=== PATIENT | female | born 1960 | race Caucasian/White ===

== ENCOUNTER → 2017-02-21 | Outpatient (CLI) | payer MEDICARE ==
--- NOTE | 2017-02-24 10:01 | MM ---
Reason for exam: screening (asymptomatic). Last mammogram was performed 1 year and 1 month ago. History: Patient is postmenopausal. Physical Findings: A clinical breast exam by your physician is recommended on an annual basis and results should be correlated with mammographic findings. MG 3D Screening Mammo W/Cad Bilateral CC and MLO view(s) were taken. Prior study comparison: February 06, 2016, bilateral MG 3d screening mammo w/cad. December 29, 2014, bilateral MG screening mammo w CAD. There are scattered fibroglandular densities. Finding: There are typically benign calcifications in both breasts. There is a chronic nodularity in the right breast. No significant changes in finding since February 06, 2016 and December 29, 2014. ASSESSMENT: Benign, BI-RAD 2 RECOMMENDATION: Routine screening mammogram of both breasts in 1 year.
== END | disposition home or self-care (01) ==
LOC: RADMAMWWP 10:54
PROVIDERS: ATTEND Internal Medicine
DX: Z12.31 Encounter for screening mammogram for malignant neoplasm of breast (principal)
CPT/HCPCS: 77063; G0202

== ENCOUNTER 2017-11-04 16:53 | Emergency (ER) | payer MEDICARE ==
[2017-11-04 17:16] VITALS: BP 157/91; PULSE 60; RESP 18; TEMP 97.6
--- NOTE | 2017-11-04 17:52 | XR ---
EXAMINATION TYPE: XR foot complete RT, XR ankle complete RT DATE OF EXAM: 11/04/2017 COMPARISON: NONE HISTORY: Pain TECHNIQUE: Frontal, lateral and oblique images of the right ankle are obtained. COMPARISON: None. FINDINGS: There is no acute fracture/dislocation evident. The joint spaces appear within normal palomino its. The overlying soft tissue appears unremarkable. IMPRESSION: There is no acute fracture or dislocation seen. EXAMINATION TYPE: XR foot complete RT, XR ankle complete RT DATE OF EXAM: 11/04/2017 CLINICAL HISTORY: pain TECHNIQUE: Frontal, lateral and oblique images of the right foot are obtained. COMPARISON: None. FINDINGS: There is no acute fracture/dislocation evident. The joint spaces appear within normal palomino its. The overlying soft tissue appears unremarkable. IMPRESSION: There is no acute fracture or dislocation. ICD 10 NO FRACTURE, INITIAL EVALUATION
--- NOTE | 2017-11-04 18:14 | ED ---
General Adult HPI - General Chief complaint: Extremity Injury, Lower Stated complaint: Fell/foot injury Time Seen by Provider: 11/04/17 18:12 Source: patient, RN notes reviewed Mode of arrival: ambulatory Limitations: no limitations - History of Present Illness Initial comments: Patient 57-year-old female presenting to the emergency room today with chief complaint of injury to the right foot. She does admit that yesterday she missed a step and went down hard on the step below. She states there was no other injury but has had some tenderness to the under aspect of the right foot. She states as the day has gone on and has started to feel better. She did take some ibuprofen. She denies any other complaints or symptoms. Patient denies any recent fever, chills, shortness of breath, chest pain, back pain, abdominal pain, nausea or vomiting, numbness or tingling, headaches or visual changes, or any other complaints. - Related Data Home Medications Medication Instructions Recorded Confirmed Aspirin 1 tab PO DAILY 04/02/15 04/02/15 Atenolol 1 tab PO DAILY 04/02/15 04/02/15 Hydrochlorothiazide [Hydrodiuril] 1 tab PO DAILY 04/02/15 04/02/15 Nortriptyline [Pamelor] 1 tab PO DAILY 04/02/15 04/02/15 Omeprazole [PriLOSEC] 1 tab PO DAILY 04/02/15 04/02/15 traMADol HCl [Ultram] 1 tab PO TID 04/02/15 04/02/15 Previous Rx's Medication Instructions Recorded Hydrocodone/Acetaminophen [Childs 1 each PO Q6HR PRN #20 tab 04/02/15 5-325] Allergies Allergy/AdvReac Type Severity Reaction Status Date / Time No Known Allergies Allergy Verified 11/04/17 17:16 Review of Systems ROS Statement: Those systems with pertinent positive or pertinent negative responses have been documented in the HPI. ROS Other: All systems not noted in ROS Statement are negative. Past Medical History Past Medical History: Asthma, Fibromyalgia, GERD/Reflux, Hypertension History of Any Multi-Drug Resistant Organisms: None Reported Past Surgical History: Section, Hysterectomy, Joint Replacement, Tonsillectomy, Tubal Ligation Additional Past Surgical History / Comment(s): knee, stomach staple Past Psychological History: No Psychological Hx Reported Smoking Status: Never smoker Past Alcohol Use History: Occasional Past Drug Use History: None Reported General Exam - General Exam Comments Initial Comments: General: The patient is awake and alert, in no distress, and does not appear acutely ill. Neck: The neck is supple, there is no tenderness or JVD. Musculoskeletal: Patient has normal appearance of the right foot and ankle no obvious swelling or deformity. Patient shows good range of motion. Is able to ambulate. No bony tenderness to the right ankle, right knee, right foot on exam. Strength 5/5. Pulses 2+ bilaterally. Neurological: A&O x 3. CN II-XII intact, There are no obvious motor or sensory deficits. Coordination appears grossly intact. Speech is normal. Skin: Skin is warm and dry and no rashes or lesions are noted. Psychiatric: Normal mood and affect. Limitations: no limitations Course Vital Signs 11/04/17 17:12 Temperature 97.6 F Pulse Rate 60 Respiratory 18 Rate Blood Pressure 157/91 O2 Sat by Pulse 95 Oximetry Medical Decision Making - Medical Decision Making X-rays reviewed negative for any fracture dislocation. Advised most likely a sprain as discussed. States it is better after Ibuprofen and walking around today. Advised follow-up in 7-10 days symptoms persist for repeat x-ray. Disposition Clinical Impression: Foot sprain Disposition: HOME SELF-CARE Condition: Good Instructions: Foot Sprain (ED) Additional Instructions: Please follow-up with family doctor/orthopedics in 7-10 days if symptoms persist for repeat x-rays. Please continue to ice elevate the affected area 4 times a day for 20 minutes at a time. Please continue ibuprofen for pain. Please return to emergency room for any other concerns or Is patient prescribed a controlled substance at d/c from ED?: No Referrals: Alicja Carrillo MD [Primary Care Provider] - 1-2 days Felix Saucedo DO [Doctor of Osteopathic Medicine] - 1-2 days Time of Disposition: 18:25
== END 2017-11-04 18:34 | disposition home or self-care (01) ==
LOC: EC 16:53
DX: S93.601A Unspecified sprain of right foot, initial encounter (principal); I10 Essential (primary) hypertension; K21.9 Gastro-esophageal reflux disease without esophagitis; Z79.82 Long term (current) use of aspirin; Z79.891 Long term (current) use of opiate analgesic; Z79.899 Other long term (current) drug therapy; X50.9XXA Other and unspecified overexertion or strenuous movements or postures, initial encounter
CPT/HCPCS: 99283

== ENCOUNTER → 2018-03-23 | Outpatient (CLI) | payer MEDICARE ==
--- NOTE | 2018-03-23 18:19 | BD ---
EXAMINATION TYPE: Axial Bone Density DATE OF EXAM: 03/23/2018 COMPARISON: NONE CLINICAL HISTORY: 57-year-old female screening for osteoporosis Height: 53 IN Weight: 258 LBS FRAX RISK QUESTIONS: Secondary Osteoporosis: 3. Menopause before 45: YES AGE 44 Rheumatoid Arthritis: YES RISK FACTORS HISTORY OF: Active: YES Diet low in dairy products/other sources of calcium: YES Postmenopausal woman: AGE 44 Lost more than 2 inches in height since high school: YES 3" MEDICATIONS: Additional Medications: ATENOLOL, HCTZ, NORTRIPTYLINE, OMEPRAZOLE, ZAFIRLUKAST, LORATADINE, ASPIRIN, IBUPROFEN, TRAMADOL, AMMONIUM, METFORMIN, ATORVASTATIN EXAM MEASUREMENTS: Bone mineral densitometry was performed using the [employer] System. Bone mineral density as measured about the Lumbar spine is: ----- L1-L4(G/cm2): 1.330 T Score Values are as follows: ----- L2: 0.4 ----- L3: 2.7 ----- L4: 1.4 ----- L1-L4: 1.3 Bone mineral density BASELINE Bone mineral density about the R hip (g/cm2): 0.854 Bone mineral density about the L hip (g/cm2): 0.829 T Score values are as follows: -----R Neck: -1.3 -----L Neck: 1.5 -----R Total: -0.5 -----L Total: -1.1 Bone mineral density BASELINE IMPRESSION: Osteopenia (T Score between -2.5 and -1). There is slightly increased risk of fracture and the patient may be considered for treatment. Re-Screen 2-5 years. NOTE: T-SCORE=SD OF THE YOUNG ADULT MEAN.
--- NOTE | 2018-03-24 09:30 | MM ---
Reason for exam: screening (asymptomatic). Last mammogram was performed 1 year and 1 month ago. History: Patient is postmenopausal. Physical Findings: A clinical breast exam by your physician is recommended on an annual basis and results should be correlated with mammographic findings. MG 3D Screening Mammo W/Cad Bilateral CC and MLO view(s) were taken. Prior study comparison: February 21, 2017, bilateral MG 3d screening mammo w/cad. February 06, 2016, bilateral MG 3d screening mammo w/cad. The breast tissue is almost entirely fat. No significant changes when compared with prior studies. ASSESSMENT: Benign, BI-RAD 2 RECOMMENDATION: Routine screening mammogram of both breasts in 1 year.
== END ==
LOC: RADMAMWWP 09:16
PROVIDERS: ATTEND Family Medicine
DX: Z12.31 Encounter for screening mammogram for malignant neoplasm of breast (principal); M85.80 Other specified disorders of bone density and structure, unspecified site
CPT/HCPCS: 77063; 77067; 77080

== ENCOUNTER → 2019-05-26 | Outpatient (CLI) | payer MEDICARE ==
--- NOTE | 2019-05-26 09:31 | US ---
EXAMINATION TYPE: US duplex aorta DATE OF EXAM: 05/26/2019 COMPARISON: NONE CLINICAL HISTORY: Z82.49 Fam hx of aaa. Family history of AAA EXAM MEASUREMENTS: Abdominal Aorta: Proximal: 2.0 x 1.8cm Mid: 2.0 x 1.7cm Distal: 1.9 x 1.6cm Bifurcation: obscured by overlying bowel content Suboptimal study due to body habitus and overlying bowel gas per technologist. Aorta is not seen in i ts entirety through the bifurcation. Visualized portions measure up to 2.0 cm in diameter. IMPRESSION: Suboptimal study, visualized portions show no greater than 3.0 cm AAA
--- NOTE | 2019-05-27 10:54 | MM ---
Reason for exam: screening (asymptomatic). Last mammogram was performed 1 year and 2 months ago. History: Patient is postmenopausal. Physical Findings: A clinical breast exam by your physician is recommended on an annual basis and results should be correlated with mammographic findings. MG 3D Screening Mammo W/Cad Bilateral CC and MLO view(s) were taken. Prior study comparison: March 23, 2018, bilateral MG 3d screening mammo w/cad. February 21, 2017, bilateral MG 3d screening mammo w/cad. The breast tissue is almost entirely fat. There is no discrete abnormality. No significant changes when compared with prior studies. ASSESSMENT: Negative, BI-RAD 1 RECOMMENDATION: Routine screening mammogram of both breasts in 1 year.
== END | disposition home or self-care (01) ==
LOC: RADUSWWP 08:46
PROVIDERS: ATTEND Family Medicine
DX: Z12.31 Encounter for screening mammogram for malignant neoplasm of breast (principal); Z13.6 Encounter for screening for cardiovascular disorders; Z82.49 Family history of ischemic heart disease and other diseases of the circulatory system
CPT/HCPCS: 77063; 77067; 93979

== ENCOUNTER → 2020-06-05 | Outpatient (CLI) | payer MEDICARE ==
--- NOTE | 2020-06-06 12:21 | MM ---
Reason for exam: screening (asymptomatic). Last mammogram was performed 1 year ago. History: Patient is postmenopausal. Physical Findings: A clinical breast exam by your physician is recommended on an annual basis and results should be correlated with mammographic findings. MG 3D Screening Mammo W/Cad Bilateral CC and MLO view(s) were taken. Prior study comparison: May 26, 2019, bilateral MG 3d screening mammo w/cad. March 23, 2018, bilateral MG 3d screening mammo w/cad. There are scattered fibroglandular densities. There are benign appearing round calcifications bilaterally. There is chronic nodularity in the right breast. There is no discrete abnormality. ASSESSMENT: Benign, BI-RAD 2 RECOMMENDATION: Routine screening mammogram of both breasts in 1 year.
== END | disposition home or self-care (01) ==
LOC: RADMAMWWP 09:49
PROVIDERS: ATTEND Family Medicine
DX: Z12.31 Encounter for screening mammogram for malignant neoplasm of breast (principal)
CPT/HCPCS: 77063; 77067

== ENCOUNTER 2021-04-09 13:18 | Emergency (ER) | payer MEDICARE ==
[2021-04-09 14:17] VITALS: BP 144/84; PULSE 57; RESP 18; TEMP 98.7
--- NOTE | 2021-04-09 16:38 | ED ---
General Adult HPI - General Chief complaint: ENT Stated complaint: Facial pain,Sinus infection Time Seen by Provider: 04/09/21 16:16 Source: patient Mode of arrival: ambulatory Limitations: no limitations - History of Present Illness Initial comments: 60-year-old female presents to the emergency department with complaints of right-sided facial discomfort she describes as pressure; states "I think I have a sinus infection." Patient reports symptoms began just over a week ago and are accompanied by nasal congestion and pain over the right maxillary teeth. States pain is worsened with bending forward. Denies fever, chills, headache, neck pain, sore throat, cough, pain, or difficulty breathing. - Related Data Home Medications Medication Instructions Recorded Confirmed Aspirin 1 tab PO DAILY 04/02/15 04/02/15 Nortriptyline [Pamelor] 1 tab PO DAILY 04/02/15 04/02/15 Omeprazole [PriLOSEC] 1 tab PO DAILY 04/02/15 04/02/15 atenoloL 1 tab PO DAILY 04/02/15 04/02/15 hydroCHLOROthiazide [Hydrodiuril] 1 tab PO DAILY 04/02/15 04/02/15 traMADol HCl [Ultram] 1 tab PO TID 04/02/15 04/02/15 Previous Rx's Medication Instructions Recorded Hydrocodone/Acetaminophen [[place] 1 each PO Q6HR PRN #20 tab 04/02/15 5-325] Amoxicillin/Potassium Clav 1 tab PO Q12HR #20 tab 04/09/21 [Augmentin 875-125 Tablet] Allergies Allergy/AdvReac Type Severity Reaction Status Date / Time No Known Allergies Allergy Verified 04/09/21 14:17 Review of Systems ROS Statement: Those systems with pertinent positive or pertinent negative responses have been documented in the HPI. ROS Other: All systems not noted in ROS Statement are negative. Past Medical History Past Medical History: Asthma, Fibromyalgia, GERD/Reflux, Hypertension History of Any Multi-Drug Resistant Organisms: None Reported Past Surgical History: Section, Hysterectomy, Joint Replacement, Tonsillectomy, Tubal Ligation Additional Past Surgical History / Comment(s): knee, stomach staple Past Psychological History: No Psychological Hx Reported Smoking Status: Never smoker Past Alcohol Use History: Occasional Past Drug Use History: None Reported General Exam Limitations: no limitations (Well-developed, well-nourished female in no acute distress. Initial temperature 98.7, pulse 57, respirations 18, blood pressure 144/84, pulse ox 98% on room air.) General appearance: alert, in no apparent distress Eye exam: Present: normal appearance, EOMI. Absent: scleral icterus, conjunctival injection, periorbital swelling ENT exam: Present: normal oropharynx, mucous membranes moist, other (Tenderness upon palpation over the right sinus) Expanded Mouth exam: Present: normal external inspection Teeth exam: Present: normal inspection Throat exam: normal inspection Neck exam: Present: normal inspection. Absent: tenderness, meningismus, lymphadenopathy Respiratory exam: Present: normal lung sounds bilaterally. Absent: respiratory distress, wheezes, rales, rhonchi, stridor Cardiovascular Exam: Present: regular rate, normal rhythm, normal heart sounds. Absent: systolic murmur, diastolic murmur, rubs, gallop, clicks Neurological exam: Present: alert, oriented X3, CN II-XII intact Psychiatric exam: Present: normal affect, normal mood Skin exam: Present: warm, dry, intact, normal color. Absent: rash Course Vital Signs 04/09/21 14:13 Temperature 98.7 F Pulse Rate 57 L Respiratory 18 Rate Blood Pressure 144/84 O2 Sat by Pulse 98 Oximetry Medical Decision Making - Medical Decision Making This is a 60-year-old female who presents to the emergency Department with complaints of right-sided facial discomfort that centers over the right sinus and is accompanied by right-sided maxillary pressure. No significant physical exam findings. Antibiotic therapy will be initiated. Patient is instructed to follow up with her primary care provider for a recheck in the next 1-2 days. Return parameters were discussed in detail. Patient verbalizes understanding and agrees with this plan. This case was discussed with my attending, Dr. Ojeda. Disposition Clinical Impression: Acute sinusitis Disposition: HOME SELF-CARE Condition: Stable Instructions (If sedation given, give patient instructions): Sinusitis (ED) Additional Instructions: Continue taking your home ALLERGY medicine. Take full course of antibiotic. Follow up with your primary care provider for a recheck in the next 1-2 days. Return to the emergency department with any new, worsening, or concerning symptoms. Prescriptions: Amoxicillin/Potassium Clav [Augmentin 875-125 Tablet] 1 tab PO Q12HR #20 tab Is patient prescribed a controlled substance at d/c from ED?: No Referrals: Alicja Carrillo MD [Primary Care Provider] - 1-2 days Time of Disposition: 16:46
== END 2021-04-09 17:08 | disposition home or self-care (01) ==
LOC: EC 13:18
DX: J01.90 Acute sinusitis, unspecified (principal); I10 Essential (primary) hypertension; K21.9 Gastro-esophageal reflux disease without esophagitis; M79.7 Fibromyalgia; J45.909 Unspecified asthma, uncomplicated; Z79.82 Long term (current) use of aspirin; Z79.899 Other long term (current) drug therapy
CPT/HCPCS: 99283

== ENCOUNTER → 2021-09-05 | Outpatient (CLI) | payer MEDICARE ==
--- NOTE | 2021-09-05 13:06 | BD ---
EXAMINATION TYPE: Axial Bone Density DATE OF EXAM: 09/05/2021 COMPARISON: 03/23/2018 CLINICAL HISTORY: Height: 63 IN Weight: 275 LBS FRAX RISK QUESTIONS: Secondary Osteoporosis: 3. Menopause before 45: TOTAL HYST AGE 44 RISK FACTORS HISTORY OF: Active: MODERATE Diet low in dairy products/other sources of calcium: YES Postmenopausal woman: TOTAL HYST AGE 44 Lost more than 2 inches in height since high school: YES 4" MEDICATIONS: Additional Medications: VIT D, ASPIRIN, LORATADINE, IBUPROFEN, NORTRIPTYLINE, HYDROCHLORIDE, ATORVAST ATIN, ZATIRLUKAST, ATENOLOL, METFORMIN, OMEPRAZOLE EXAM MEASUREMENTS: Bone mineral densitometry was performed using the [employer] System. Bone mineral density as measured about the Lumbar spine is: ----- L1-L4(G/cm2): 1.357 T Score Values are as follows: ----- L2: 0.0 ----- L3: 3.0 ----- L4: 1.8 ----- L1-L4: 1.5 Bone mineral density has: Increased 1.1% since study of: 03/23/2018 Bone mineral density about the R hip (g/cm2): 0.880 Bone mineral density about the L hip (g/cm2): 0.796 T Score values are as follows: -----R Neck: -1.1 -----L Neck: -1.7 -----R Total: -0.4 -----L Total: -1.3 Bone mineral density has: Decreased -1.4% since study of: 03/23/2018 IMPRESSION: There is osteopenia of the left proximal femur. NOTE: T-SCORE=SD OF THE YOUNG ADULT MEAN.
--- NOTE | 2021-09-05 13:38 | MM ---
Reason for exam: screening (asymptomatic). Last mammogram was performed 1 year and 3 months ago. History: Patient is postmenopausal. Physical Findings: A clinical breast exam by your physician is recommended on an annual basis and results should be correlated with mammographic findings. MG 3D Screening Mammo W/Cad Bilateral CC and MLO view(s) were taken. Prior study comparison: June 05, 2020, bilateral MG 3d screening mammo w/cad. May 26, 2019, bilateral MG 3d screening mammo w/cad. There are scattered fibroglandular densities. There is no discrete abnormality. No significant changes when compared with prior studies. ASSESSMENT: Negative, BI-RAD 1 RECOMMENDATION: Routine screening mammogram of the left breast in 1 year.
== END | disposition home or self-care (01) ==
LOC: RADMAMWWP 10:17
PROVIDERS: ATTEND Family Medicine
DX: Z12.31 Encounter for screening mammogram for malignant neoplasm of breast (principal); Z78.0 Asymptomatic menopausal state; M85.852 Other specified disorders of bone density and structure, left thigh
CPT/HCPCS: 77063; 77067; 77080

== ENCOUNTER → 2022-10-04 | Outpatient (CLI) | payer MEDICARE ==
--- NOTE | 2022-10-07 17:07 | MM ---
Reason for Exam: Screening (asymptomatic). Last screening mammogram was performed 12 month(s) ago. Patient History: Menarche at age 12. First Full-Term at age 27. Left ovary removed at age 44. Right ovary removed at age 44. Hysterectomy at age 44. Postmenopausal. Patient has history of breast feeding. Risk Values: Esperanza 5 year model risk: 1.7%. NCI Lifetime model risk: 7.7%. Prior Study Comparison: 02/06/2016 Bilateral Screening Mammogram, [facility]. 02/21/2017 Bilateral Screening Mammogram, [facility]. 03/23/2018 Bilateral Screening Mammogram, [facility]. 05/26/2019 Bilateral Screening Mammogram, [facility]. 06/05/2020 Bilateral Screening Mammogram, [facility]. 09/05/2021 Bilateral Screening Mammogram, [facility]. Tissue Density: There are scattered fibroglandular densities. Findings: Analyzed By CAD. Pattern appears symmetrical and stable. No significant interval change is evident. Chronic nodularity is in the outer right breast. No suspicious groups of microcalcifications, spiculated or lobular masses, architectural distortion or other secondary signs of malignancy are mammographically apparent. Overall Assessment: Benign, BI-RAD 2 Management: Screening Mammogram of both breasts in 1 year. A negative mammogram report should not preclude additional follow up of suspicious palpable abnormalities. Patient should continue monthly self breast exam. A clinical breast exam by your physician is recommended on an annual basis and results should be correlated with mammographic findings. Electronically signed and approved by: Jamie Chow D.O. Radiologis
== END | disposition home or self-care (01) ==
LOC: RADMAMWWP 10:18
PROVIDERS: ATTEND Family Medicine
DX: Z12.31 Encounter for screening mammogram for malignant neoplasm of breast (principal); Z78.0 Asymptomatic menopausal state
CPT/HCPCS: 77063; 77067

== ENCOUNTER → 2023-02-17 | Outpatient (CLI) | payer MEDICARE ==
--- NOTE | 2023-02-17 17:15 | US ---
EXAMINATION TYPE: US kidneys/renal and bladder DATE OF EXAM: 02/17/2023 COMPARISON: NONE CLINICAL INDICATION: Female, 62 years old with history of R32 URINARY INCONTINENCE; EXAM MEASUREMENTS: Right Kidney: 10.6 x 3.9 x 4.8 cm Left Kidney: 9.8 x 5.4 x 4.6 cm Post Void Residual Volume: wnl Right Kidney: wnl , no masses, no hydronephrosis, no calculi. Left Kidney: wnl no masses, no hydronephrosis, no calculi. Bladder: wnl Bilateral Jets seen: no Normal Post Void Residual: yes There is no evidence for hydronephrosis at this point in time. No nephrolithiasis is seen. No rosalind s are identified. The urinary bladder is anechoic. IMPRESSION: No evidence for acute process. Cortical medullary differentiation is maintained.
== END | disposition home or self-care (01) ==
LOC: RADUSWWP 16:09
PROVIDERS: ATTEND Family Medicine
DX: R32 Unspecified urinary incontinence (principal)
CPT/HCPCS: 76770

== ENCOUNTER → 2023-10-06 | Outpatient (CLI) | payer MEDICARE ==
--- NOTE | 2023-10-07 09:01 | MM ---
Reason for Exam: Screening (asymptomatic). Last mammogram was performed 1 year(s) and 1 month(s) ago. Patient History: Menarche at age 12. First Full-Term at age 27. Left ovary removed at age 44. Right ovary removed at age 44. Hysterectomy at age 44. Postmenopausal. Patient has history of breast feeding. Risk Values: Esperanza 5 year model risk: 1.7%. NCI Lifetime model risk: 7.4%. Prior Study Comparison: 06/05/2020 Bilateral Screening Mammogram, [facility]. 09/05/2021 Bilateral Screening Mammogram, [facility]. 10/04/2022 Bilateral MG 3D screening mammo w/cad, [facility]. Tissue Density: There are scattered areas of fibroglandular density. Findings: Analyzed By CAD. There is no suspicious group of microcalcifications or new suspicious mass in either breast. Overall Assessment: Negative, BI-RAD 1 Management: Screening Mammogram of both breasts in 1 year. . Patient should continue monthly self-breast exams. A clinical breast exam by your physician is recommended on an annual basis. This exam should not preclude additional follow-up of suspicious palpable abnormalities. Note on Esperanza scores and lifetime risk: 1. A Esperanza score greater than 3% is considered moderate risk. If this is the case, consider specialist referral to assess eligibility for a risk reducing agent. 2. If overall lifetime risk for the development of breast cancer is 20% or higher, the patient may qualify for future screening with alternating mammogram and breast MRI. Electronically signed and approved by: Yovany Trent M.D. Radiologis
--- NOTE | 2023-10-08 17:55 | BD ---
EXAMINATION TYPE: Axial Bone Density DATE OF EXAM: 10/06/2023 CLINICAL HISTORY: 63 years old Female. ICD-10 CODE: M85.80 other disorder of bone Height: 63 Weight: 245.7 FRAX RISK QUESTIONS: Alcohol (3 or more units per day): no Family History (Parent hip fracture): no Glucocorticoids (More than 3mos): no History of Fracture in Adulthood: no Secondary Osteoporosis: 1. Type 1 Diabetes: no 2. Hyperthyroidism: no 3. Menopause before 45: Hysterectomy complete age 44 4. Malnutrition: no 5. Chronic liver disease: no Rheumatoid Arthritis: no Current Tobacco Use: no RISK FACTORS HISTORY OF: Hip Fracture (Right/Left): no Spine Fracture: no History of Wrist Fracture: no Surgery to Spine/Hip(right/left)/Wrist (right/left): no MEDICATIONS: Thyroid Medications: no Osteoporosis Medications: no EXAM MEASUREMENTS: Bone mineral densitometry was performed using the [employer] System. Bone mineral density as measured about the Lumbar spine is: ----- L1-L4(G/cm2): 1.430 T Score Values are as follows: ----- L1: 0.8 ----- L2: 0.6 ----- L3: 3.1 ----- L4: 3.0 ----- L1-L4: 2.1 Z Score Values are as follows: ----- L1: 1.1 ----- L2: 0.9 ----- L3: 3.4 ----- L4: 3.2 ----- L1-L4: 2.4 Bone mineral density has: increased 5.4 % since study of: 09/05/2021 Bone mineral density about the R hip (g/cm2): 0.9620 Bone mineral density about the L hip (g/cm2): 0.833 T Score values are as follows: -----R Neck: -1.0 -----L Neck: -1.7 -----R Total: -0.4 -----L Total: -1.4 Z Score values are as follows: -----R Neck: -0.3 -----L Neck: -1.1 -----R Total: -0.1 -----L Total: -1.1 Bone mineral density has: increased 0.2 % since study of: 09/05/2021 FRAX%s: The graph provided illustrates a 8.1% chance for a major osteoporotic fx and a 0.9% chance fo r the hips probability for fx in 10 years time. IMPRESSION: Osteopenia (T Score between -2.5 and -1). There is slightly increased risk of fracture and the patient may be considered for treatment. Re-Screen 2-5 years. NOTE: T-SCORE=SD OF THE YOUNG ADULT MEAN.
== END | disposition home or self-care (01) ==
LOC: RADMAMWWP 10:59
PROVIDERS: ATTEND Family Medicine
DX: Z12.31 Encounter for screening mammogram for malignant neoplasm of breast (principal); M85.80 Other specified disorders of bone density and structure, unspecified site; Z78.0 Asymptomatic menopausal state
CPT/HCPCS: 77063; 77067; 77080

== ENCOUNTER → 2023-10-17 | Outpatient (CLI) | payer MEDICARE ==
--- NOTE | 2023-10-24 10:25 | MR ---
EXAMINATION TYPE: MR shoulder LT wo con DATE OF EXAM: 10/17/2023 COMPARISON: 10/31/2015 HISTORY: 63-year-old female M7 5.112, M75.42 Lt shoulder pain TECHNIQUE: Multiplanar, multisequence imaging of the left shoulder is performed without contrast. FINDINGS: Abnormal signal within the intracapsular portion of the long head biceps tendon could represent parti al tear or severe tendinosis. There is slight attritional tearing of the superior subscapularis tendon fibers allowing for some med ial subluxation of the lung and biceps tendon in the upper bicipital groove. The majority of the subs capularis tendon remains intact. Moderate degenerative change acromion clavicular joint with joint effusion, marginal spurring. No sig nificant subacromial impingement. Trace fluid in the subacromial/subdeltoid bursa. There is severe thickening and inhomogeneous signal of the anterior supraspinatus tendon. The posteri or fibers show shallow bursal sided tearing just lateral to the acromion measuring 1.2 cm x 1.3 cm. Lesser degree of heterogeneity of the infraspinatus tendon. No high-grade partial or full-thickness tear is identified. No atrophy of the rotator cuff musculature. There is progression to an outside severe degenerative change at the glenohumeral joint. Full-thickne ss cartilage loss along the posterior inferior half of the glenoid and severe cartilage loss througho ut the humeral articular surface. Bulky marginal spurring is developed. Reactive moderate joint effus ion with tiny loose bodies. No Hill-Sachs deformity or os acromiale. Some patchy red marrow can be seen in the setting of anemia, obesity, smoking, and chronic disease. IMPRESSION: 1. Progression to severe glenohumeral joint OA. Full-thickness cartilage loss along most of the humer al head articular surface. Full-thickness cartilage loss along the posterior inferior half of the gle noid surface. Reactive moderate joint effusion with tiny loose bodies. 2. Severe supraspinatus tendinosis with some shallow bursal sided tearing. No high-grade partial thic kness or full-thickness tear. 3. Severe intracapsular long head biceps tendinosis versus partial tear. 4. Moderate AC joint OA.
== END | disposition home or self-care (01) ==
LOC: RADMRIMAIN 11:34
PROVIDERS: ATTEND Orthopaedic Surgery
DX: M75.122 Complete rotator cuff tear or rupture of left shoulder, not specified as traumatic (principal); M75.42 Impingement syndrome of left shoulder; M19.012 Primary osteoarthritis, left shoulder; M67.814 Other specified disorders of tendon, left shoulder

== ENCOUNTER → 2023-12-04 | Outpatient (CLI) | payer MEDICARE ==
--- NOTE | 2023-12-05 10:23 | CA ---
Exercise Stress Test Report Name: Josi Amato Exam Date: 12/04/2023 10:57 Exam Location: [place] Stress Ht (in): 65 Wt (lb): 247 BSA: 2.16 Ordering Phys: Alicja Carrillo MD Referring Phys: Alicja Carrillo MD Technologist: Wellington Dougherty Age: 63 Gender: F : 1960 Procedure CPT: Indications: I49.3 ventricular premature depolarization ICD-10 Codes: Patient History: Hypertension, hyperlipidemia and family history of heart disease. Pre-op. Medications: Meds past 24 hrs: Pretest Chest Pain: STRESS TEST Carlos Protocol Exercise Duration (min:sec): 02:[address] Depressions (mm): Angina Score: Lim Score: Resting HR (bpm): 84 Peak HR (bpm): 137 Resting BP (mmHg): 120 / 79 Peak BP (mmHg): 188 / 93 MPHR: 157 Target HR: 133 % MPHR: 87 METS: 4.7 Total Dose: Peak Dose: Atropine: Double Product: 72475 BP Response: Stress Termination: Max exertion Stress Symptoms: Dyspnea Stress Summary: ECG ANALYSIS Resting ECG: Stress ECG: CONCLUSIONS Baseline EKG revealed a normal sinus rhythm without significant ST-T changes. Patient walked for 3 minutes on a standard Carlos protocol. She developed fatigue and shortness of breath. Heart rate was more than 85% of her predicted maximal. No anginal symptoms are reported no ST segment changes were noted to suggest ischemia. This is a negative stress test with limited exercise capacity. Dr. Chip Moyer MD (Electronically Signed) Final Date: 05 Dec 2023 10:22
== END | disposition home or self-care (01) ==
LOC: RADNMMAIN 10:31
PROVIDERS: ATTEND Family Medicine
DX: Z01.810 Encounter for preprocedural cardiovascular examination (principal); I49.3 Ventricular premature depolarization; I10 Essential (primary) hypertension; E78.5 Hyperlipidemia, unspecified; Z82.49 Family history of ischemic heart disease and other diseases of the circulatory system
CPT/HCPCS: 93017

== ENCOUNTER → 2024-11-10 | Outpatient (CLI) | payer BC ==
--- NOTE | 2024-11-11 10:30 | MM ---
Reason for Exam: Screening (asymptomatic). Last mammogram was performed 1 year(s) and 1 month(s) ago. Patient History: Menarche at age 12. First Full-Term at age 27. Left ovary removed at age 44. Right ovary removed at age 44. Hysterectomy at age 44. Postmenopausal. Patient has history of breast feeding. Patient used Hormonal Contraceptives for 5 years. Risk Values: Esperanza 5 year model risk: 1.8%. NCI Lifetime model risk: 7.2%. Prior Study Comparison: 09/05/2021 Bilateral Screening Mammogram, [facility]. 10/04/2022 Bilateral MG 3D screening mammo w/cad, [facility]. 10/06/2023 Bilateral MG 3D screening mammo w/cad, [facility]. Tissue Density: The breasts are almost entirely fatty. Findings: Analyzed By CAD. Right breast: Stable benign oval mass in the right upper outer quadrant likely representing intramammary lymph node. There is no suspicious group of microcalcifications or new suspicious mass. Left breast: There is no suspicious group of microcalcifications or new suspicious mass. Benign-appearing calcifications left breast. Overall Assessment: Benign, BI-RAD 2 Management: Diagnostic Mammogram of both breasts in [address] [facility] will attempt to contact patient to return for supplemental views and ultrasound if indicated. Patient should continue monthly self-breast exams. A clinical breast exam by your physician is recommended on an annual basis. This exam should not preclude additional follow-up of suspicious palpable abnormalities. Note on Esperanza scores and lifetime risk: 1. A Esperanza score greater than 3% is considered moderate risk. If this is the case, consider specialist referral to assess eligibility for a risk reducing agent. 2. If overall lifetime risk for the development of breast cancer is 20% or higher, the patient may qualify for future screening with alternating mammogram and breast MRI. [facility], , 11/10/2024 2:38 PM. Electronically signed and approved by: Morgan Lion DO
== END | disposition home or self-care (01) ==
LOC: RADMAMWWP 14:29
PROVIDERS: ATTEND Family Medicine
DX: Z12.31 Encounter for screening mammogram for malignant neoplasm of breast (principal); R92.313 Mammographic fatty tissue density, bilateral breasts; Z78.0 Asymptomatic menopausal state; Z92.0 Personal history of contraception
CPT/HCPCS: 77063; 77067